=== PATIENT | female | born 1950 | race Two or more races ===

== ENCOUNTER → 2025-01-03 | Outpatient (CLI) | payer OTHER, MEDICAID, SELFPAY ==
--- NOTE | 2025-01-03 12:40 | XR_ITS ---
Examination: Bone densitometry Date and time of exam:January 03, 2025 1226 hours INDICATIONS: Menopause age 50 Technique: Lumbar spine and hip total bone mineralization values of an calculated. Peak reference and age match control results have been displayed. Findings: Lumbar spine total bone mineralization is1.042 gm/cm2. This is 0.0 standard deviations at peak reference. This is 2.4 standard deviations above age-matched controls. Hip total bone mineralization is 0.897 gm/cm2 This is 0.5 standard deviations below peak reference. This is 1.4 standard deviations above age-matched controls Impression: There is normal mineralization based on lumbar spine measurements. There is osteopenia based on hip measurements Lumbar mineralization is increase 4.3% compared with June 18, 2014 Hip mineralization is decreased 1.9% compared with June 18, 2014.
== END | disposition home or self-care (01) ==
PROVIDERS: Referring Provider Physician Assistant Medical; Visit Provider Physician Assistant Medical
DX: M85.89 Other specified disorders of bone density and structure, multiple sites (principal)
CPT/HCPCS: 77080